=== PATIENT | female | born 1980 | race Caucasian/White ===

== ENCOUNTER 2017-11-26 00:52 | Emergency (ER) | payer OTHER ==
[~2017-11-26] VITALS: Ht 165.1 cm; Wt 80.7 kg
[2017-11-26] MEDS ORDERED: MUPIROCIN22 GM TOP (01:53)
[2017-11-26] MEDS ORDERED: AMOX1TAB5 PO (01:53)
== END 2017-11-26 02:02 | disposition home or self-care (01) ==
LOC: ER 00:52
DX: S70.361A Insect bite (nonvenomous), right thigh, initial encounter (principal); W57.XXXA Bitten or stung by nonvenomous insect and other nonvenomous arthropods, initial encounter; Y93.84 Activity, sleeping; Y92.092 Bedroom in other non-institutional residence as the place of occurrence of the external cause; Y99.8 Other external cause status

== ENCOUNTER 2018-06-16 18:34 | Emergency (ER) | payer OTHER ==
[~2018-06-16] VITALS: Ht 167.6 cm; Wt 77.1 kg
[~2018-06-16 18:34] MED LIST: AMOX1TAB5 PO; MUPIROCIN22 GM TOP
[2018-06-16] MEDS ORDERED: TYLENOL COLD &1 EACH (19:30)
[2018-06-16] MEDS ORDERED: PNEU16DI2 (19:31)
== END 2018-06-16 21:00 | disposition home or self-care (01) ==
LOC: ER 18:34
DX: B34.9 Viral infection, unspecified (principal)

== ENCOUNTER 2019-09-29 17:35 | Emergency (ER) | payer OTHER ==
[~2019-09-29] VITALS: Ht 165.1 cm; Wt 72.1 kg
[~2019-09-29 17:35] MED LIST changes: +PNEU16DI2; +TYLENOL COLD &1 EACH
== END 2019-09-29 21:08 | disposition home or self-care (01) ==
LOC: ER 17:35
DX: M54.89 Other dorsalgia (principal); N93.8 Other specified abnormal uterine and vaginal bleeding; R10.13 Epigastric pain